=== PATIENT | male | born 1940 | race Caucasian/White ===

== ENCOUNTER 2018-09-22 07:01 | Day surgery (SDC) | payer MEDICARE ==
[~2018-09-22] VITALS: Ht 185.4 cm; Wt 104.0 kg
[~2018-09-22 07:01] MED LIST: ASPI81CH; ATOR10; CAND32; HYDR-86; MAGNESIUM400 M1; METO100ER; POTCHL10ER
== END 2018-09-22 09:04 | disposition home or self-care (01) ==
LOC: ORSCSDS 07:01
PROVIDERS: Ophthalmology
PROC: 08RJ3JZ Replacement of Right Lens with Synthetic Substitute, Percutaneous Approach (ICD-10-PCS; principal; 2018-09-22 08:30)
DX: H25.11 Age-related nuclear cataract, right eye (principal); I10 Essential (primary) hypertension; Z79.899 Other long term (current) drug therapy; Z79.82 Long term (current) use of aspirin
CPT/HCPCS: J2001; J2250; J3010; J3301; V2632